=== PATIENT | female | born 1980 | race Caucasian/White ===

== ENCOUNTER 2020-11-09 14:05 | Emergency (ER) | payer MEDICAID, SELFPAY ==
[2020-11-09 14:07] VITALS: BP 144/91; PULSE 83; RESP 18; TEMP 36.7; O2SAT 99; BMI 36.0
--- NOTE | 2020-11-09 14:32 | ED.VISSUMM ---
- ER Visit Summary Date of Service: 11/09/20 Chief Complaint: [Not feeling well] History of Present Illness: The patient is a 40 F [presents to the emergency department with complaint of not feeling well for the last 3 to 4 days. Patient states that she works at a [place] [employer] [facility] around COVID-19 patients. Patient states that she gets tested twice a week and her last test was 2 days ago but has not heard the result. Patient for the last 3 to 4 days has had body aches as well as sore throat and nausea. She denies loss of taste or smell. She does have a mild cough that is mostly nonproductive. She is had no fever. She does have a mild sore throat. Patient has history of hypothyroidism. Patient is a smoker.] Patient incidentally states that she did have urinary tract infection and was treated with Macrobid 4 weeks ago. Patient states that everything resolved and she is had no further issues since that time. Physical Examination: [HEENT-PERRLA, EOMI. Cranial nerves II through XII grossly intact. TMs clear. Mucous membranes moist. No adenopathy. Cardiovascular-regular rate and rhythm without murmur or ectopy Lungs-clear to auscultation, chest wall stable without crepitus or subcu emphysema Abdomen-normoactive bowel sounds, soft, nontender, no rebound or rigidity, no peritoneal signs. Extremities-intact ?4, normal range of motion, normal pulses, atraumatic] Test Results: [Rapid influenza screen was negative. Patient had a rapid COVID-19 test that was negative. Chest x-ray was normal.] Emergency Department Course and Treatment: [] Treatment Plan: [Patient awaiting PCR results from 2 days ago for her COVID-19 test therefore I do not feel any further testing is indicated at this time.] Disposition: [Discharged home in stable condition] Impression: [Viral URI] This note was generated with [employer] dictation software. It may contain incorrect words, spelling, and punctuation that were not noted in review of the chart prior to signing ED Disposition - Plan for ED Patient: Referrals: Vidya Thompson [Primary Care Provider] -
--- NOTE | 2020-11-09 14:45 | RAD_ITS ---
STUDY: X-RAY CHEST REASON FOR EXAM: Female, 40 years old. COVID EXPOSURE AT WORK, PT STATES LAST 3 DAYS, SORE THROAT, ACHES, CHILLS, CONGESTION AND H/A TECHNIQUE: Single AP portable view of the chest. COMPARISON: None. FINDINGS: The lungs are clear and expanded. There is no demonstrated pleural abnormality. Normal size heart. Normal mediastinum and kenia. Normal visualized pulmonary arteries. Normal visualized aortic arch and descending thoracic aorta. Normal visualized thoracic spine. Normal visualized ribs, clavicles, and shoulders. There is no demonstrated abnormality of the visualized soft tissue structures of the upper abdomen. RAD/Chest 1 View IMPRESSION: Normal x-ray examination of the chest. Electronically Signed: Lior Dick, at 15:00 EST , Service support ,
--- NOTE | 2020-11-09 16:22 | ED.DEP ---
ED Disposition - Plan for ED Patient: Instructions: ED URI, Viral, No Abx (Adult) Referrals: Vidya Thompson [Primary Care Provider] - 3-5 Days
== END 2020-11-09 16:30 | disposition home or self-care (01) ==
LOC: ED 15:34
PROVIDERS: Emergency Provider Emergency Medicine; PCP Family Medicine
DX: J06.9 Acute upper respiratory infection, unspecified (principal); E03.9 Hypothyroidism, unspecified; F17.200 Nicotine dependence, unspecified, uncomplicated; Z79.899 Other long term (current) drug therapy
CPT/HCPCS: 71045; 87426; 87804; 99282